=== PATIENT | female | born 1945 | race Caucasian/White ===

== ENCOUNTER 2017-01-12 20:18 | Observation (INO) | payer MEDICARE, BC ==
--- NOTE | 2017-01-12 22:05 | ER Document Report ---
ED Fall - General Chief Complaint: Fall Injury Stated Complaint: FALL,HEAD INJURY Time Seen by Provider: 01/12/17 21:58 Notes: Patient is a 71-year-old female comes emergency department for chief complaint of a mechanical fall where she stepped and then lost her balance and fell backwards. She states she fell back on stairs and she hit the back of her head. She states that she laid there for a couple of minutes, she states when she got up she had a mild headache especially in the back of her head and she felt somewhat lightheaded. She denies other areas of pain, she denies focal numbness or weakness, she denies vomiting. She does not take a blood thinner. PMH COPD and head tremor. TRAVEL OUTSIDE OF THE [place] IN LAST 30 DAYS: No - Related data Allergies/Adverse Reactions: latex Allergy (Mild, Verified 01/12/17 23:40) bacitracin [From Neosporin ([id number]-[id number]-[id number])] Allergy (Verified 01/12/17 23:40) cefdinir Allergy (Verified 01/12/17 23:40) cephalexin [From Keflex] Allergy (Verified 01/12/17 23:40) erythromycin base Allergy (Verified 01/12/17 23:40) hydrocodone [From Lortab] Allergy (Verified 01/13/17 00:40) neomycin [From Neosporin ([id number])] Allergy (Verified 01/12/17 23:40) polymyxin B [From Neosporin (hhi-srz-oycfe)] Allergy (Verified 01/12/17 23:40) prochlorperazine [From Compazine] Allergy (Verified 01/12/17 23:40) Past Medical History - General Information source: Patient - Social History Smoking Status: Former Smoker Frequency of alcohol use: None Drug Abuse: None Lives with: Family Family History: Reviewed & Not Pertinent Pulmonary Medical History: Reports: Hx COPD Renal/ Medical History: Denies: Hx Peritoneal Dialysis - Immunizations Immunizations up to date: Yes Hx Diphtheria, Pertussis, Tetanus Vaccination: Yes Review of Systems - Review of Systems Constitutional: No symptoms reported EENT: No symptoms reported Cardiovascular: No symptoms reported Respiratory: No symptoms reported Gastrointestinal: No symptoms reported Genitourinary: No symptoms reported Female Genitourinary: No symptoms reported Musculoskeletal: See HPI Skin: No symptoms reported Hematologic/Lymphatic: No symptoms reported Neurological/Psychological: See HPI Physical Exam - Vital signs Vitals: Temp Pulse Resp BP Pulse Ox 97.3 F 85 16 134/61 H 94 01/12/17 20:32 01/12/17 20:32 01/12/17 20:32 01/12/17 20:32 01/12/17 20:32 Interpretation: Normal - General General appearance: Appears well, Alert In distress: None - HEENT Head: Normocephalic, Atraumatic Eyes: Normal Pupils: PERRL - Respiratory Respiratory status: No respiratory distress Chest status: Nontender Breath sounds: Normal Chest palpation: Normal - Cardiovascular Rhythm: Regular Heart sounds: Normal auscultation Murmur: No - Abdominal Inspection: Normal Distension: No distension Bowel sounds: Normal Tenderness: Nontender Organomegaly: No organomegaly - Back Back: Normal, Nontender. No: Tender - Extremities General upper extremity: Normal inspection, Nontender, Normal ROM, Normal strength General lower extremity: Normal inspection, Nontender, Normal ROM, Normal strength - Neurological Neuro grossly intact: Yes - Head tremor, baseline Cognition: Normal Orientation: AAOx4 [place] Coma Scale Eye Opening: Spontaneous [place] Coma Scale Verbal: Oriented [place] Coma Scale Motor: Obeys Commands Elizabeth Coma Scale Total: 15 Speech: Normal Cranial nerves: Normal Cerebellar coordination: Gait ataxia. 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 She does have any central head tremor but she has an otherwise normal neurological examination. She does have a hematoma in the occipital area of the scalp. No other signs of trauma, no other areas of injury noted on examination. Vital signs unremarkable. She insists it was a mechanical fall and she denies any chest pain, dizziness, or unsteadiness before the fall. CAT scan of the head and neck unremarkable other than scalp hematoma. No acute intracranial findings. Patient unchanged on reexamination. I did get patient up and attempted to ambulate her, however she is extremely unsteady, having to hold onto the bed or the wall, she states this is abnormal for her and she is usually steady. Denies vertigo history. No nystagmus. She is concerned about going home and she is a fall risk. Discussed with Dr. Florence. Recommends admission to the hospital for monitoring and physical therapy evaluation. Discussed with Dr. Méndez, Dr. Méndez will admit to [facility] [place] [facility] observation. - Vital Signs Vital signs: Temp Pulse Resp BP Pulse Ox 97.3 F 70 20 136/62 H 97 01/12/17 20:32 01/13/17 00:16 01/13/17 00:05 01/13/17 00:16 01/13/17 00:05 Discharge - Discharge Clinical Impression: Gait instability Fall Qualifiers: Encounter type: initial encounter Qualified Code(s): W19.XXXA - Unspecified fall, initial encounter Head injury Qualifiers: Encounter type: initial encounter Qualified Code(s): S09.90XA - Unspecified injury of head, initial encounter Scalp hematoma Qualifiers: Encounter type: initial encounter Qualified Code(s): S00.03XA - Contusion of scalp, initial encounter Condition: Stable Disposition: ADMITTED OBSERVATION Admitting Provider: Hospitalist Unit Admitted: [facility]
--- NOTE | 2017-01-12 22:33 | RADIOLOGY REPORT (SQ) ---
EXAM DESCRIPTION: CT HEAD WITHOUT COMPLETED DATE/TIME: 01/12/2017 10:21 pm REASON FOR STUDY: fall, head injury COMPARISON: None. TECHNIQUE: Axial images acquired through the brain without intravenous contrast. Images reviewed wi th bone, brain and subdural windows. Images stored on PACS. All CT scanners at this facility use dose modulation, iterative reconstruction, and/or weight based d osing when appropriate to reduce radiation dose to as low as reasonably achievable (ALARA). [facility]: Dose Right [facility]: CareDose [facility]: Dose Right [facility]: Teradose 4D [facility]: Smart [email or web address] RADIATION DOSE: Up-to-date CT equipment and radiation dose reduction techniques were employed. CTDIv ol: 64.6 mGy. DLP: 1163 mGy-cm. mGy. LIMITATIONS: None. FINDINGS: VENTRICLES: Prominent. CEREBRUM: No masses. No hemorrhage. No midline shift. Areas of low density in the white matter mos t likely due to chronic micro-vascular ischemic change. No evidence for acute infarction. CEREBELLUM: No masses. No hemorrhage. No alteration of density. No evidence for acute infarction. EXTRAAXIAL SPACES: Mild age-related involutional change. No fluid collections. No masses. ORBITS AND GLOBE: No intra- or extraconal masses. Normal contour of globe without masses. CALVARIUM: No fracture. PARANASAL SINUSES: No fluid or mucosal thickening. SOFT TISSUES: Small posterior scalp hematoma. OTHER: No other significant finding. IMPRESSION: SOFT TISSUE INJURY WITHOUT FRACTURE OR ACUTE INTRACRANIAL PROCESS. EVIDENCE OF ACUTE STROKE: NO. TECHNICAL DOCUMENTATION: JOB ID: [id number] Quality ID # [id number]: Final reports with documentation of one or more dose reduction techniques (e.g., Au tomated exposure control, adjustment of the mA and/or kV according to patient size, use of iterative reconstruction technique) 2010 [employer]- All Rights Reserved
--- NOTE | 2017-01-12 22:34 | RADIOLOGY REPORT (SQ) ---
EXAM DESCRIPTION: CT CERVICAL SPINE WITHOUT COMPLETED DATE/TIME: 01/12/2017 10:21 pm REASON FOR STUDY: fall, head injury COMPARISON: None. TECHNIQUE: Axial images acquired through the cervical spine without intravenous contrast. Images re viewed with lung, soft tissue and bone windows. Reconstructed coronal and sagittal MPR images review ed. Images stored on PACS. All CT scanners at this facility use dose modulation, iterative reconstruction, and/or weight based d osing when appropriate to reduce radiation dose to as low as reasonably achievable (ALARA). [facility]: Dose Right [facility]: CareDose [facility]: Dose Right [facility]: Teradose 4D [facility]: Smart [employer] RADIATION DOSE: Up-to-date CT equipment and radiation dose reduction techniques were employed. CTDIv ol: 21.9 mGy. DLP: 429 mGy-cm. mGy. LIMITATIONS: None. FINDINGS: ALIGNMENT: Anatomic. MINERALIZATION: Normal. VERTEBRAL BODIES: No fractures or dislocation. DISCS: Multilevel disc space narrowing with osteophytes. FACETS, LATERAL MASSES, POSTERIOR ELEMENTS: Facet arthropathy. No fractures. No dislocation. No ac karli findings. HARDWARE: None in the spine. VISUALIZED RIBS: No fractures. LUNG APICES AND SOFT TISSUES: No significant or acute findings. OTHER: No other significant finding. IMPRESSION: CHRONIC DEGENERATIVE CHANGES. NO ACUTE FINDINGS. TECHNICAL DOCUMENTATION: JOB ID: [id number] Quality ID # [id number]: Final reports with documentation of one or more dose reduction techniques (e.g., Au tomated exposure control, adjustment of the mA and/or kV according to patient size, use of iterative reconstruction technique) 2010 [employer]- All Rights Reserved
[2017-01-12] MEDS ORDERED: ACETAMINOPHEN 325 MG TABLET PO ONE (23:07)
[2017-01-13 00:39] LABS: APPEARANCE,URINE CLEAR; BILIRUBIN,URINE NEGATIVE (NEGATIVE); GLUCOSE, URINE NEGATIVE (NEGATIVE); KETONES,URINE NEGATIVE (NEGATIVE); LEUKOCYTE ESTERASE,URINE LARGE (NEGATIVE); NITRITE,URINE NEGATIVE (NEGATIVE); PROTEIN,URINE NEGATIVE (NEGATIVE); URINE SPECIFIC GRAVITY 1.014; UROBILINOGEN,URINE NEGATIVE mg/dL (<2.0)
[2017-01-13] MEDS ORDERED: IPRATROPIUM/ALBUTEROL 0.5-2.5 MG/3 ML AMPUL NEB PRN (00:41)
[2017-01-13 01:02] LABS: ABSOLUTE BASOPHILS # (AUTO) 0.1 10^3/uL (0.0-0.2); ABSOLUTE EOSINOPHILS # (AUTO) 0.1 10^3/uL (0.0-0.6); ABSOLUTE LYMPHOCYTES (AUTO) 1.6 10^3/uL (0.5-4.7); ABSOLUTE MONOCYTES (AUTO) 0.8 10^3/uL (0.1-1.4); ABSOLUTE NEUT (AUTO) 7.2 10^3/uL (1.7-8.2); BASOPHILS % (AUTO) 0.5 % (0-2); EOSINOPHILS % (AUTO) 1.1 % (0-6); HEMATOCRIT 39.8 % (36.0-47.0); HEMOGLOBIN 13.9 g/dL (12.0-15.5); HGB HCT DIFFERENCE 1.9; LYMPHOCYTES % (AUTO) 16.2 % (13-45); MEAN CORPUSCULAR HEMOGLOBIN 31.5 pg (27.0-33.4); MEAN CORPUSCULAR HGB CONC 34.9 g/dL (32.0-36.0); MEAN CORPUSCULAR VOLUME 90 fl (80-97); MONOCYTES % (AUTO) 8.5 % (3-13); RED BLOOD COUNT 4.41 10^6/uL (3.72-5.28); RED CELL DISTRIBUTION WIDTH 13.7 % (11.5-14.0); SEGMENTED NEUTROPHILS % (AUTO) 73.7 % (42-78); WHITE BLOOD COUNT 9.8 10^3/uL (4.0-10.5)
--- NOTE | 2017-01-13 01:19 | PDOC H&P ---
History of Present Illness Admission Date/PCP: 01/13/17 0005 visiting from [place], [place]. Patient complains of: Fall with head trauma History of Present Illness: PAOLA ALFORD is a 71 year old female, visiting friends in the area from her home in [facility] and with mild underlying COPD, arthritis, hyperlipidemia, and esophageal reflux disease, along with social anxiety who presents to the emergency room after a mechanical fall. Stepped backwards at the top of a flight of approximately 10-12 stairs and tumbled down all the stairs. Did strike her head. No loss of consciousness. Prior to the above event, no specific complaints, including headache chest or abdominal pain, nausea vomiting, fever chills, diarrhea or dysuria. Initial plans by the emergency room staff were to discharge the patient home. However, upon arising from her emergency room stretcher, patient was noted to be quite unsteady on her feet. She is also complaining of some mild right sided chest discomfort; this was not present prior to the above event. Otherwise, no specific complaints other than mild headache. Patient has been discussed with emergency room nurse practitioner who evaluated the patient. Dictation via voice recognition software. Laboratory results are have been ordered and are pending. X-ray summary results are listed below, with full report(s) reviewed. EKG reviewed. No old EKG available for comparison. Social history/personal habits: . Lives alone. Retired. 2 children. Former smoker. Rare alcohol. No illicit drug use. Allergies/adverse reactions are listed in [email or web address] and are reviewed. Home medications initially autopopulated into [employer] may not accurately reflect patient's true medications, dosages, and/or frequencies. 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 Unfortunately, patient not certain of all medications/dosages/frequencies. REVIEW OF SYSTEMS: Constitutional: No fever or chills. Eyes: No vision complaints. ENT: No swallowing problems or complaints. Denies hearing loss. Pulmonary: No current complaints. Cardiovascular: See history and present illness. Gastrointestinal: No current complaints, including nausea or vomiting. Skin: No current complaints, including rashes. Hematologic: Denies easy bruising. Neurologic: See history and present illness. Musculoskeletal: Mild joint pain from arthritis. Psychiatric: Social anxiety. Endocrine: No current complaints, including polyuria. Genitourinary: No current complaints, including dysuria. 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 5 feet 6 inches tall. 77.1 kg. BMI 27.4 kg/m. Temperature 97.3. Supine blood pressure 136/62 with a pulse of 70. Seated blood pressure 130/66 with a pulse of 67. Standing blood pressure 140/74; pulse not recorded at that time. Slightly overweight otherwise well-nourished well-developed quite pleasant female appearing perhaps a bit younger than her stated age. Awake alert and cooperative. No obvious distress other than perhaps mildly anxious. Skin is warm and dry. No grossly obvious evidence of rash in areas of skin examined. No subcutaneous nodules palpated. ENT: Hearing grossly normal to normal conversation. Tongue midline on protrusion pink and slightly tacky. No stack sign. Very mild discomfort on palpation of occipital region of her scalp at the site of a small hematoma. Eyes: No scleral icterus. Pupils equal and reactive to light at 4 mm. [place] conjunctivae. No raccoon eyes. Neck is supple and nontender to gentle active range of motion and palpation. Midline trachea. No palpable thyroid nodule mass enlargement or tenderness. Lymphatic: No palpable cervical or clavicular nodes. Neck and lymphatic exams limited by patient body habitus. Psychiatric: Reasonable insight into acute and chronic medical issues. Oriented to time location and why here. Lungs: Auscultation reveals clear and equal breath sounds bilaterally. No use of accessory respiratory muscles. Cardiovascular: Heart regular rate and rhythm, without gallop murmur or rub. No carotid or abdominal aortic bruits. No ankle or pedal edema. Palpable dorsalis pedis pulses. Abdomen:soft slightly distended nontender with positive bowel sounds. Unable to adequately evaluate abdomen for masses or organomegaly due to distention. Visual examination of right breast at the site of maximal discomfort failed to reveal any obvious evidence of hematoma. Mild tenderness at the site on direct palpation. No instability or crepitus on palpation. Extremities: Hands and feet are warm and dry. No calf tenderness to compression. No grossly obvious visual evidence of calf swelling. Gentle manipulation of upper and lower extremities fails to reveal any obvious evidence of injury or instability to involved major joints. Neuro: Cranial Nerves II through XII are grossly intact. Light touch intact at face, upper and lower extremities. Motor function of major muscle groups upper and lower extremities 5 over 5 and symmetric. Patellar reflexes absent. Absent Babinski. No nystagmus. Very slight but persistent head tremor; chronic condition, per patient. Past Medical History Cardiac Medical History: Reports: Hyperlipidema Denies: Atrial Fibrillation, Congestive Heart Failure, Coronary Artery Disease, DVT, Myocardial Infarction, Hypertension, Pulmonary Embolism Pulmonary Medical History: Reports: Chronic Obstructive Pulmonary Disease (COPD ) - Rarely bothers patient. Denies: Asthma, Sleep Apnea EENT Medical History: Denies: Eyes, Ears, Throat Neurological Medical History: Reports: Other - Benign head tremor. Denies: Hemorrhagic CVA, Ischemic CVA, Seizures Endocrine Medical History: Denies: Diabetes Mellitus Type 1, Diabetes Mellitus Type 2, Hyperthyroidism, Hypothyroidism Renal/ Medical History: Reports: None Malignancy Medical History: Reports: Skin Cancer - Basal cell carcinoma GI Medical History: Reports: Gastroesophageal Reflux Disease Denies: Cirrhosis, Hepatitis, Peptic Ulcer Disease Musculoskeltal Medical History: Reports: Arthritis Skin Medical History: Reports: None Psychiatric Medical History: Reports: General Anxiety Disorder Denies: Alcohol Dependency, Depression, Substance Abuse, Tobacco Dependency Infectious Medical History: Denies: Hepatitis B, Hepatitis C Past Surgical History Past Surgical History: Reports: Cholecystectomy, Hysterectomy, Tonsillectomy Social History Information Source: Patient, Emergency Med Personnel, [facility] Records Lives with: Alone Smoking Status: Former Smoker Frequency of Alcohol Use: Rare Drugs: None - Advance Directive Resuscitation Status: Full Code Surrogate healthcare decision maker:: Daughter Ariadna Villeda Family History Parental Family History Reviewed: Yes - Mother of stroke; father pancreatic cancer. Children Family History Reviewed: Yes - Child with thyroid problems. Sibling(s) Family History Reviewed.: Yes - Brother is a bladder cancer survivor. Medication/Allergy Home Medications: RX: Lorazepam [Ativan 1 mg Tablet] 0.5 mg PO Q12HP PRN 01/13/17 RX: Simvastatin [Zocor 20 mg Tablet] 20 mg PO QPM 01/13/17 RX: Amoxicillin 500 mg PO BID #20 capsule 01/14/17 Allergies/Adverse Reactions: latex Allergy (Mild, Verified 01/12/17 23:40) bacitracin [From Neosporin ([id number])] Allergy (Verified 01/12/17 23:40) cefdinir Allergy (Verified 01/12/17 23:40) cephalexin [From Keflex] Allergy (Verified 01/12/17 23:40) erythromycin base Allergy (Verified 01/12/17 23:40) hydrocodone [From Lortab] Allergy (Verified 01/13/17 00:40) neomycin [From Neosporin ([id number])] Allergy (Verified 01/12/17 23:40) polymyxin B [From Neosporin ([id number]-aqr-bardx)] Allergy (Verified 01/12/17 23:40) prochlorperazine [From Compazine] Allergy (Verified 01/12/17 23:40) Physical Exam Vital Signs: Temp Pulse Resp BP Pulse Ox 97.3 F 70 20 136/62 H 97 01/12/17 20:32 01/13/17 00:16 01/13/17 00:05 01/13/17 00:16 01/13/17 00:05 Results Laboratory Results: 01/13/17 00:10 Urine Color YELLOW Urine Appearance CLEAR Urine pH 6.0 Ur Specific [place] 1.014 Urine Protein NEGATIVE Urine Glucose (UA) NEGATIVE Urine Ketones NEGATIVE Urine Blood NEGATIVE Urine Nitrite NEGATIVE Ur Leukocyte Esterase LARGE H Urine WBC (Auto) 45 Urine RBC (Auto) 5 Impressions: Cervical Spine CT 01/12/17 22:04 IMPRESSION: CHRONIC DEGENERATIVE CHANGES. NO ACUTE FINDINGS. Head CT 01/12/17 22:04 IMPRESSION: SOFT TISSUE INJURY WITHOUT FRACTURE OR ACUTE INTRACRANIAL PROCESS. EVIDENCE OF ACUTE STROKE: NO. Assessment & Plan - Diagnosis (1) Abnormal EKG Is this a current diagnosis for this admission?: Yes Plan: No old EKG available for comparison. Will repeat. (2) Fall Qualifiers: Encounter type: initial encounter Qualified Code(s): W19.XXXA - Unspecified fall, initial encounter Is this a current diagnosis for this admission?: Yes Plan: Strongly encouraged patient not to get out of bed without notifying staff to avoid a fall with injury. Every 4 hour orthostatic vital signs while awake. (3) Gait instability Is this a current diagnosis for this admission?: Yes (4) Head injury Qualifiers: Encounter type: initial encounter Qualified Code(s): S09.90XA - Unspecified injury of head, initial encounter Is this a current diagnosis for this admission?: Yes Plan: Doubt significant, but obviously with posttraumatic gait instability, will observe closely, with every 4 hours MEND"s exam. Knee high SCDs for DVT prophylaxis. Due to nature of patient's injury, and the likelihood that she will probably go home later today, will forego Lovenox or heparin at this point in time.. Impression and plans were discussed with patient, who concurs. Time spent in evaluation and management of patient: 64 minutes. (5) Right-sided chest pain Is this a current diagnosis for this admission?: Yes Plan: More than likely this is simply chest wall discomfort due to her fall. However , with abnormal EKG, will trend troponins. Told her to notify staff should chest pain worsen. (6) COPD (chronic obstructive pulmonary disease) Qualifiers: COPD type: unspecified COPD Qualified Code(s): J44.9 - Chronic obstructive pulmonary disease, unspecified Is this a current diagnosis for this admission?: Yes Plan: No evidence of acute exacerbation of same. Resume home medications as appropriate once these have been determined and reviewed. As needed duo nebs. (7) HLD (hyperlipidemia) Qualifiers: Hyperlipidemia type: unspecified Qualified Code(s): E78.5 - Hyperlipidemia , unspecified Is this a current diagnosis for this admission?: Yes Plan: Resume home medications as appropriate once these have been determined and reviewed. - Time Time Spent: 50 to 70 Minutes Medications reviewed and adjusted accordingly: No - Patient uncertain as to her meds. Anticipated discharge: Home Within: within 48 hours
[2017-01-13 01:25] LABS: ALANINE AMINOTRANSFERASE 33 U/L (9-52); ALBUMIN 4.5 g/dL (3.5-5.0); ALKALINE PHOSPHATASE 76 U/L (38-126); ANION GAP 14 (5-19); ASPARTATE AMINO TRANSFERASE 26 U/L (14-36); BILIRUBIN,DIRECT 0.3 mg/dL (0.0-0.4); BILIRUBIN,TOTAL 0.4 mg/dL (0.2-1.3); BLOOD UREA NITROGEN 12 mg/dL (7-20); CALCIUM 9.6 mg/dL (8.4-10.2); CARBON DIOXIDE 24 mmol/L (22-30); CHLORIDE 107 mmol/L (98-107); CREATININE RESULT 0.58 mg/dL (0.52-1.25); GLUCOSE 111 mg/dL (75-110); MAGNESIUM 2.2 mg/dL (1.6-2.3); POTASSIUM 4.4 mmol/L (3.6-5.0); SODIUM 145.2 mmol/L (137-145); TOTAL PROTEIN 6.6 g/dL (6.3-8.2)
[2017-01-13 01:27] LABS: ALCOHOL < 10 mg/dL (NONE DETECTED)
--- NOTE | 2017-01-13 02:10 | EKG REPORT ---
SEVERITY:- BORDERLINE ECG - SINUS RHYTHM BORDERLINE LEFT AXIS DEVIATION CONSIDER ANTERIOR INFARCT BORDERLINE T ABNORMALITIES, LATERAL LEADS : Confirmed by: Kecia Delgado MD 13-Jan-2017 02:09:29
[2017-01-13] MEDS ORDERED: AZTREONAM INJ 1 GM VIAL IV ONE (03:15)
[2017-01-13 03:46] LABS: FREE T3 3.86 pg/mL (2.77-5.27)
[2017-01-13] MEDS ORDERED: AZTREONAM INJ 1 GM VIAL ONE (05:03)
[2017-01-13] MEDS ORDERED: AZTREONAM INJ 1 GM VIAL IV SCH (06:00)
[2017-01-13] MEDS: DOCUSATE SODIUM 100 MG CAPSULE PO SCH ×2 (10:11→18:49)
[2017-01-13] MEDS ORDERED: MECLIZINE HCL 12.5 MG TABLET PO ONE (10:15)
[2017-01-13] MEDS ORDERED: LORAZEPAM INJ 2 MG/1 ML VIAL IV ONE ×2 (10:16→14:30)
[2017-01-13] MEDS ORDERED: MECLIZINE HCL 12.5 MG TABLET PO PRN (13:43)
--- NOTE | 2017-01-13 14:42 | RADIOLOGY REPORT (SQ) ---
EXAM DESCRIPTION: MRI HEAD WITHOUT COMPLETED DATE/TIME: 01/13/2017 2:30 pm REASON FOR STUDY: Vertigo R94.6 ABNORMAL RESULTS OF THYROID FUNCTION STUDIES N39.0 URINARY TRACT I NFECTION, SITE NOT SPECIFIED COMPARISON: Head CT from 01/12/2017 TECHNIQUE: Multiplanar imaging includes non-contrasted T1, T2, FLAIR, and Diffusion with ADC map seq uences. Images stored on PACS. LIMITATIONS: None. FINDINGS: ANATOMY: No anomalies. Normal vascular flow voids. Pituitary fossa normal. CSF SPACES: Normal in size and contour. No hemorrhage. CEREBRUM: A few high-signal intensity lesions scattered throughout the white matter on FLAIR imaging with distribution suggesting chronic micro-vascular ischemic change. Sulci and gyri normal in size a nd contour. No evidence of hemorrhage, mass or extraaxial fluid collection. POSTERIOR FOSSA: No signal alteration. No hemorrhage. No edema, masses or mass effect. Internal nilo tory canals, cerebello-pontine angles, mastoids normal. DIFFUSION: Negative for acute or sub-acute infarction. ORBITS: No masses. Globes normal. PARANASAL SINUSES: No fluid levels. Mucosa normal. OTHER: No other significant finding. IMPRESSION: MINIMAL MICROVASCULAR ISCHEMIC CHANGE. OTHERWISE NORMAL STUDY. EVIDENCE OF ACUTE STROKE: NO. TECHNICAL DOCUMENTATION: JOB ID: [id number] [employer]- All Rights Reserved
[2017-01-13] MEDS: AZTREONAM 1 GM in DEXTROSE 5%-WATER 50 ML IV SCH ×2 (14:55→22:50)
[2017-01-14] MEDS: ACETAMINOPHEN 325 MG TABLET PO PRN ×2 (05:55→11:25)
[2017-01-14] MEDS: AZTREONAM 1 GM in DEXTROSE 5%-WATER 50 ML IV SCH (05:56)
[2017-01-14] MEDS: DOCUSATE SODIUM 100 MG CAPSULE PO SCH (09:57)
[2017-01-14 12:18] VITALS: BP 133/52
--- NOTE | 2017-01-14 14:04 | PDOC DISCHARGE SUMMARY ---
General - Admit/Disc Date/PCP Admission Date/Primary Care Provider: 01/13/17 00:41 Discharge Date: 01/14/17 - Discharge Diagnosis (1) Fall Is this a current diagnosis for this admission?: Yes Summary: Patient has CT and MRI of head that demonstrated no acute process. Patient was found to have signs that would suggest cerebellar dysfunction. Feel that this most likely is more chronic. Patient had walked up stairs when she fell backwards. Patient was seen by PT who is recommended that patient could ambulate around the room. Recommend that patient follow-up with neurology and [facility]. Patient was told not to drive and not to walk upstairs or down stairs unless she has an escort. (2) UTI (urinary tract infection) Is this a current diagnosis for this admission?: Yes Summary: Group B strep acute cystitis: amoxicillin (3) Gait instability Is this a current diagnosis for this admission?: Yes Summary: Concern for cerebellar dysfunction. Recommend the patient follow-up with neurology as outpatient. Patient was instructed not to drive or to walk up or down stairs without an escort. Feel that patient's gait instability is most likely a chronic issue. Patient was seen by PT who recommended that patient was safe to ambulate around the room. (4) Scalp hematoma Is this a current diagnosis for this admission?: Yes Summary: Supportive care - Additional Information Resuscitation Status: Full Code Discharge Diet: Cardiac Discharge Activity: Activity As Tolerated Home Medications: Lorazepam [Ativan 1 mg Tablet] 0.5 mg PO Q12HP PRN 01/13/17 Simvastatin [Zocor 20 mg Tablet] 20 mg PO QPM 01/13/17 Amoxicillin 500 mg PO BID #20 capsule 01/14/17 History of Present Illness History of Present Illness: PAOLA ALFORD is a 71 year old female resented to the emergency room after falling down a flight of steps. Hospital Course Hospital Course: Patient is a 71-year-old female who presented to our facility after falling down a flight of steps while visiting a friend. Patient states that she lost her balance and fell backwards. Patient had a CT done of her head in the emergency department that demonstrated no acute process. Patient then had an MRI of the brain to evaluate for further which did not demonstrate any acute process. Patient was examined and found to have difficulty maintaining balance with eyes closed and arms stretched out in front of her. Patient was instructed that she would need a follow-up with neurology in [place] for further evaluation. Patient was found to have acute cystitis secondary to GBS and was placed on amoxicillin. Patient was instructed not to drive and not to walk up or down stairs without an escort. Physical Exam Vital Signs: Temp Pulse Resp BP Pulse Ox 97.8 F 62 18 133/52 H 98 01/14/17 12:11 01/14/17 12:11 01/14/17 12:11 01/14/17 12:11 01/14/17 12:11 Intake & Output 01/13/17 01/14/17 01/15/17 06:59 06:59 06:59 Intake Total 1954 Balance 1954 Weight 86.7 kg 87.3 kg General appearance: PRESENT: no acute distress, well-developed, well-nourished Head exam: PRESENT: normocephalic, other - Right side hematoma Eye exam: PRESENT: conjunctiva pink, EOMI. ABSENT: scleral icterus Ear exam: PRESENT: normal external ear exam Mouth exam: PRESENT: moist, tongue midline Neck exam: ABSENT: carotid bruit, JVD, lymphadenopathy, thyromegaly Respiratory exam: PRESENT: clear to auscultation erin. ABSENT: rales, rhonchi, wheezes Cardiovascular exam: PRESENT: RRR. ABSENT: diastolic murmur, rubs, systolic murmur Pulses: PRESENT: normal dorsalis pedis pul Vascular exam: PRESENT: normal capillary refill GI/Abdominal exam: PRESENT: normal bowel sounds, soft. ABSENT: distended, guarding, mass, organolmegaly, rebound, tenderness Rectal exam: PRESENT: deferred Extremities exam: PRESENT: full ROM. ABSENT: calf tenderness, clubbing, pedal edema Neurological exam: PRESENT: alert, awake, oriented to person, oriented to place , oriented to time, oriented to situation, CN II-XII grossly intact, motor sensory deficit - Patient has difficulty with maintaining balance when feet are together eyes are closed and arms are stretched out in front of her. Psychiatric exam: PRESENT: appropriate affect, normal mood. ABSENT: homicidal ideation, suicidal ideation Skin exam: PRESENT: dry, intact, warm. ABSENT: cyanosis, rash Results Laboratory Results: 01/13/17 00:45 01/13/17 00:45 01/13/17 01/13/17 01/13/17 00:45 06:45 13:20 Troponin I < 0.012 < 0.012 < 0.012 Impressions: Cervical Spine CT 01/12/17 22:04 IMPRESSION: CHRONIC DEGENERATIVE CHANGES. NO ACUTE FINDINGS. Head CT 01/12/17 22:04 IMPRESSION: SOFT TISSUE INJURY WITHOUT FRACTURE OR ACUTE INTRACRANIAL PROCESS. EVIDENCE OF ACUTE STROKE: NO. Head MRI 01/13/17 00:00 IMPRESSION: MINIMAL MICROVASCULAR ISCHEMIC CHANGE. OTHERWISE NORMAL STUDY. EVIDENCE OF ACUTE STROKE: NO. Plan Time Spent: Less than 30 Minutes
--- NOTE | 2017-01-15 06:28 | EKG REPORT ---
SEVERITY:- ABNORMAL ECG - SINUS RHYTHM NONSPECIFIC T ABNORMALITIES, ANTERIOR LEADS : Confirmed by: Kecia Delgado MD 15-Jan-2017 06:27:50
== END 2017-01-14 12:40 | disposition home or self-care (01) ==
LOC: ER 20:18 → UNDOADMOB 23:37 → EH 23:37 → 3W 01-13 01:00 → EH 01-13 01:00
PROVIDERS: ADMIT Family Medicine; ATTEND Family Medicine
DX: S00.03XA Contusion of scalp, initial encounter (principal); W10.9XXA Fall (on) (from) unspecified stairs and steps, initial encounter; R26.81 Unsteadiness on feet; N30.00 Acute cystitis without hematuria; B95.1 Streptococcus, group B, as the cause of diseases classified elsewhere; R07.89 Other chest pain; G25.2 Other specified forms of tremor; J44.9 Chronic obstructive pulmonary disease, unspecified; F41.8 Other specified anxiety disorders; E78.5 Hyperlipidemia, unspecified; M19.90 Unspecified osteoarthritis, unspecified site; K21.9 Gastro-esophageal reflux disease without esophagitis; Z87.891 Personal history of nicotine dependence; Z85.828 Personal history of other malignant neoplasm of skin; Z90.49 Acquired absence of other specified parts of digestive tract; Z90.710 Acquired absence of both cervix and uterus; Z79.899 Other long term (current) drug therapy; Z82.3 Family history of stroke; Z80.0 Family history of malignant neoplasm of digestive organs; Z80.52 Family history of malignant neoplasm of bladder; R94.31 Abnormal electrocardiogram [ECG] [EKG]
CPT/HCPCS: 99285; 36415; 87040; 87086; 84439; 80307; 83735; 84443; 85025; 87088; 80053; 81001; 84484; 84481; 70551; 70450; 72125; 93005 ×2; 93010 ×2; 97163; G0378 ×2; A9270 ×5; J2060; J3490 ×3; G8978; G8979; G8980